=== PATIENT | male | born 1965 | race Caucasian/White ===

== ENCOUNTER 2016-10-24 07:28 | Emergency (ER) | payer MEDICAID ==
[2016-10-24 08:15] LABS: BASOPHILS 0.4 % (0.0-2.0); HEMATOCRIT 44.7 % (42.0-54.0); HEMOGLOBIN 15.2 g/dL (13.5-17.5); IMMATURE GRANULOCYTES 0.4 % (0-5); LYMPHOCYTES 24.3 % (15-50); MCH 29.9 pg (26.0-34.0); MEAN PLATELET VOLUME 8.5 fL (7.4-10.4); MONOCYTES 6.9 % (2-11); RBC 5.08 10x6/uL (4.20-6.10); RDW 13.2 % (11.5-14.5); WBC 8.5 10x3/uL (4.8-10.8)
[2016-10-24 08:22] LABS: PLATELET COUNT 296 10x3/uL (130-400)
[2016-10-24 08:34] LABS: ALBUMIN 3.6 g/dL (3.4-5.0); ALKALINE PHOSPHATASE 48 U/L (46-116); ALT (SGPT) 23 U/L (10-68); BILIRUBIN - TOTAL 0.27 mg/dL (0.2-1.3); CALC OSMOLALITY 280 mosm/kg (275-300); CALCIUM 8.9 mg/dL (8.5-10.1); CARBON DIOXIDE 28.7 mmol/L (21.0-32.0); CHLORIDE - SERUM 104 mmol/L (98-107); GLUCOSE 108 mg/dL (74-106); POTASSIUM - SERUM 3.8 mmol/L (3.5-5.1); PROTEIN - SERUM 7.4 g/dL (6.4-8.2); SODIUM 140 mmol/L (136-145); UREA NITROGEN 16 mg/dL (7-18); eGFR NON AFRICAN AMERICAN 84 mL/min (90-120)
[2016-10-24 08:40] LABS: PRO BNP 16 pg/mL (0-125); TROPONIN-I < 0.017 ng/mL (0.000-0.060)
== END 2016-10-24 09:30 | disposition home or self-care (01) ==
LOC: D.ER 07:28
PROVIDERS: Emergency Medicine Emergency Medical Services
DX: J20.9 Acute bronchitis, unspecified (principal); R06.00 Dyspnea, unspecified; F17.200 Nicotine dependence, unspecified, uncomplicated

== ENCOUNTER → 2017-08-13 19:36 | Outpatient (CLI) | payer MEDICAID | END | disposition home or self-care (01) | LOC: D.SLEEP 19:36 | DX: G47.33 Obstructive sleep apnea (adult) (pediatric) (principal) ==

== ENCOUNTER → 2017-09-09 19:38 | Outpatient (CLI) | payer MEDICAID | END | disposition home or self-care (01) | LOC: D.SLEEP 19:38 | DX: G47.33 Obstructive sleep apnea (adult) (pediatric) (principal) ==

== ENCOUNTER 2019-10-18 00:24 | Emergency (ER) | payer MEDICAID ==
[~2019-10-18] VITALS: Ht 177.8 cm; Wt 111.1 kg
[2019-10-18 00:30] VITALS: Ht 177.8 cm; Wt 111.1 kg
[2019-10-18] MEDS ORDERED: NIACIN100 MG (00:31)
[2019-10-18] MEDS ORDERED: NEURONTIN 300300 MG PO (00:31)
[2019-10-18] MEDS ORDERED: TRAZODONE HCL150 MG PO (00:32)
[2019-10-18] MEDS ORDERED: FLUTICASONE PRO16 GM NASAL (01:16)
[2019-10-18] MEDS ORDERED: AUGMENTIN 875-11 TAB PO (01:16)
[2019-10-18 01:27] VITALS: BP 131/74
== END 2019-10-18 01:27 | disposition home or self-care (01) ==
LOC: D.ER 00:24
DX: J01.90 Acute sinusitis, unspecified (principal); G47.33 Obstructive sleep apnea (adult) (pediatric); I10 Essential (primary) hypertension